=== PATIENT | male | born 1980 | race Caucasian/White ===

== ENCOUNTER 2018-02-05 12:47 | Emergency (ER) | payer BC ==
[~2018-02-05] VITALS: Ht 182.9 cm; Wt 104.3 kg
[2018-02-05 12:52] VITALS: BP_SYST 155
[2018-02-05] MEDS ORDERED: MEPERIDINE HCL/PF 50 MG/ML AMP IM ONE (14:15)
[2018-02-05] MEDS ORDERED: ONDANSETRON HCL 4 MG/2 ML VIAL IM ONE (14:15)
[2018-02-05 15:00] VITALS: BP_SYST 145
== END 2018-02-05 15:00 | disposition home or self-care (01) ==
LOC: SED 12:47
DX: S82.831A Other fracture of upper and lower end of right fibula, initial encounter for closed fracture (principal); S90.821A Blister (nonthermal), right foot, initial encounter; F17.200 Nicotine dependence, unspecified, uncomplicated; Z88.6 Allergy status to analgesic agent; Z88.5 Allergy status to narcotic agent; W01.0XXA Fall on same level from slipping, tripping and stumbling without subsequent striking against object, initial encounter; Y93.53 Activity, golf; Y92.39 Other specified sports and athletic area as the place of occurrence of the external cause; Y99.8 Other external cause status
CPT/HCPCS: 73610; 96372; 99284; J2175; J2405

== ENCOUNTER 2020-11-16 19:42 | Emergency (ER) | payer BC ==
[~2020-11-16] VITALS: Ht 185.4 cm; Wt 102.1 kg
[2020-11-16 20:20] VITALS: BP_SYST 119
--- NOTE | 2020-11-16 20:23 | NUR ---
ER in tent examining patient.
[2020-11-16 20:26] VITALS: BP_SYST 141
--- NOTE | 2020-11-16 20:26 | NUR ---
Pt came in to the ER for 3 days of acute redness and discomfort over the right hand which is more pronounced over the right fifth digit. Patient attributed his symptoms from hands and has not often but not moisturizing enough. He reported redness and pain to the area. Denied any recent traumas or injury. Denied open wounds or bleeding/discharge. Denies motor or sensory deficits or numbness. Pt resp even unlabored, not in distress.
[2020-11-16 22:32] VITALS: BP_SYST 138
--- NOTE | 2020-11-16 22:32 | NUR ---
Patient given written and verbal discharge instructions and verbalizes understanding. ER MD discussed with patient the results and treatment provided. Patient in stable condition. ID arm band removed. Rx of Keflex 500 mg given. Patient educated on pain management and to follow up with PMD. Pain Scale 4/10. Opportunity for questions provided and answered.
== END 2020-11-16 22:32 | disposition home or self-care (01) ==
LOC: SED 19:42
DX: L03.113 Cellulitis of right upper limb (principal); Z88.6 Allergy status to analgesic agent
CPT/HCPCS: 99283